=== PATIENT | male | born 1970 | race African-American/Black ===

== ENCOUNTER 2016-04-25 02:05 | Inpatient (IN) | payer OTHER ==
--- NOTE | ~2016-04-25 | PN ---
Unit #: [id number] #: [id number] Patient: TATYANA DICKEY [id number] [facility] [address] [place] [address] [id number] I MR#: [id number] NAME: TATYANA DICKEY ROOM: P204 Age: 45 Sex: M Admission Date: 04/25/2016 : 1970 Attending Physician: Jasbir Nunez M.D. Admitting Physician: Jasbir Nunez M.D. Primary Care Physician: Primary Care Physician Monae BROWN PROGRESS NOTES DATE 05/01/2016 DISCUSSION Mr. Dickey is a 45-year-old male who was seen today and chart was reviewed and case was discussed with the staff. He has been doing fairly well and has been showing improvement in his depression and anxiety. He has been cooperative with treatment recommendations and has been taking medications and tolerating them fairly well with no reported side effects. MENTAL STATUS EXAMINATION Middle-aged male who was casually dressed with fair personal hygiene and appears to be in no acute distress or discomfort. He was awake and alert on interaction with intact orientation. His mood was anxious with congruent affect. He denies any suicidal or homicidal ideations. His insight and judgement remains slightly impaired. TREATMENT PLAN 1. Will continue on his current treatment protocol. Will monitor his response and make further adjustments as needed. 2. Will continue to follow up. Dictated by... Jasbir Nunez M.D. IAA/catherine TD: 05/02/2016 16:59 JOB #: [id number] Unit #: [id number] #: [id number] Patient: TATYANA DICKEY MIGUELVENITA PROGRESS NOTES X Jasbir Nunez MD PROGRESS NOTE
--- NOTE | ~2016-04-25 | HP ---
Unit #: [id number] #: [id number] Patient: TATYANA CHAN [id number] [facility] [address] [place] [address] [id number] I MR#: [id number] NAME: TATYANA CHAN ROOM: P204 Age: 45 Sex: M Admission Date: 04/25/2016 : 1970 Attending Physician: Jasbir Nunez M.D. Admitting Physician: Jasbir Nunez M.D. Primary Care Physician: Primary Care Physician No HISTORY AND PHYSICAL HISTORY OF PRESENT ILLNESS The patient is a 45-year-old male who has been [facility]. He reports he drinks about a fifth of whiskey daily. PAST MEDICAL HISTORY 1. Alcohol abuse. 2. Hypertension. 3. Withdrawal seizures. PAST SURGICAL HISTORY None. ALLERGIES Aspirin. HOME MEDICATIONS None. SOCIAL HISTORY The patient endorses tobacco and alcohol abuse. REVIEW OF SYSTEMS CONSTITUTIONAL: Denies fever or chills. HEENT: Denies sore throat, ear pain, or runny nose. CARDIOVASCULAR: Denies chest pain, irregular heart rhythm, or palpitations. CHEST: Denies shortness of breath or cough. No hemoptysis. GI: Denies nausea, vomiting, diarrhea, or chronic constipation. ENDOCRINE: Denies increased thirst or urination. Denies recent significant weight loss or gain. : Denies dysuria, frequency, or hematuria. SKIN: Denies any rashes. HEMATOLOGIC: Denies history of increased bleeding or bruising. MUSCULOSKELETAL: Denies any hot, swollen joints. No generalized pain. NEUROLOGIC: Denies problems with speech or vision. Denies any loss of bowel or bladder control. PHYSICAL EXAMINATION GENERAL: The patient is awake, in no acute distress. VITAL SIGNS: Temperature 98.7, heart rate 120, respirations 16, blood pressure 108/64. He is 5 feet 6 and weighs 136 pounds. HEENT: Head is atraumatic, normocephalic. Pupils are equal, round, and Unit #: [id number] #: [id number] Patient: TATYANA CHAN reactive. Extraocular movements are intact. No drainage from ears or nose. NECK: Supple. Trachea is midline. HEART: Regular rate and rhythm. LUNGS: Clear. ABDOMEN: Soft, nontender. : Not done. SKIN: Warm, dry. No unusual rash or lesions. EXTREMITIES: No clubbing, cyanosis, or edema. NEUROLOGIC: Cranial nerves II through XII are intact. No focal deficits. Sensory and motor function grossly normal in all extremities. Coordination and gait normal. Deep tendon reflexes intact. IMPRESSION Psychiatric admission. RECOMMENDATIONS PSYCHIATRIC: Per psychiatrist. MEDICAL: I seen no contraindication to patient participating in the facility activities. MEDICAL PROGNOSIS Fair. MEDICAL CONDITION Stable. Dictated by... Shanda Wilson A.P.R.N. for Veronica Limon M.D. GIANNI/coy TD: 04/25/2016 07:58 JOB #: [id number] HISTORY AND PHYSICAL X Shanda Wilson SUPPLIER ENGINEER X HISTORY AND PHYSICAL
--- NOTE | ~2016-04-25 | PN ---
Unit #: [id number] #: [id number] Patient: TATYANA DICKEY [id number] [facility] [address] [place] [address] [id number] I MR#: [id number] NAME: TATYANA DICKEY ROOM: P204 Age: 45 Sex: M Admission Date: 04/25/2016 : 1970 Attending Physician: Jasbir Nunez M.D. Admitting Physician: Jasbir Nunez M.D. Primary Care Physician: Primary Care Physician Monae BROWN PROGRESS NOTES DATE OF SERVICE: 04/29/2016 SUBJECTIVE Mr. Dickey is a 45-year-old male, who was seen today and chart was reviewed and the case was discussed with the staff. He has been anxious and withdrawn, though has not shown any agitation or irritability and has been cooperative with the treatment recommendations as he has been taking the medications and tolerating them fairly well with no reported side effects. MENTAL STATUS EXAMINATION Middle-aged male, who was casually dressed with fair personal hygiene, appears to be in no acute distress or discomfort. He was awake and alert on interaction with intact orientation. His mood was anxious with a congruent affect. His speech was slow and goal directed. He denies any suicidal or homicidal ideations and also denies any auditory or visual hallucinations. His insight and judgment remain slightly impaired. TREATMENT PLAN 1. We will continue him on his current medications and treatment protocol. We will monitor his response to the medications and make further adjustments as needed. 2. We will continue to follow up. Dictated by... Deepti Wood/radha TD: 05/01/2016 10:01 JOB #: [id number] Unit #: [id number] #: [id number] Patient: TATYANA DICKEY PROGRESS NOTES X Jasbir Nunez MD PROGRESS NOTE
--- NOTE | ~2016-04-25 | DS ---
Unit #: [id number] #: [id number] Patient: TATYANA DICKEY [id number] [facility] [address] [place] [address] [id number] I MR#: [id number] NAME: TATYANA DICKEY ROOM: P204 Age: 45 Sex: M Admission Date: 04/25/2016 : 1970 Discharge Date: 05/02/2016 Attending Physician: Jasbir Nunez M.D. Primary Care Physician: Primary Care Physician No DISCHARGE SUMMARY IDENTIFYING DATA Mr. Dickey is a 45-year-old single, male, who is a resident of [place], [place] and is known to us from previous encounter, and was self-referred to the hospital on a voluntary basis. DISCHARGE DIAGNOSES Psychiatric: Alcohol dependence, moderate, in acute withdrawals; alcohol-induced mood disorder. Medical: None. Stressors: Moderate psychosocial stressors. HISTORY OF PRESENT ILLNESS Please see initial psychiatric evaluation for details. PAST PSYCHIATRIC HISTORY Please see initial psychiatric evaluation for details. PAST MEDICAL HISTORY Please see initial psychiatric evaluation for details. HOSPITAL COURSE The patient was admitted to the adult chemical dependency and [facility] at [facility] and was oriented to the hospital environment. Routine p.r.n. medications were initiated, and he was started on the alcohol detox protocol and he was closely monitored. He was taking the medications regularly and was tolerating them fairly well, though was complaining of some persistent depressive symptoms, and as such, Remeron was initiated at 15 mg at bedtime, later it was increased to 30 mg at bedtime and he was seen to be doing much better and was calm and cooperative with treatment recommendations and was taking the medications regularly and was tolerating them fairly well and was able to show a decent and therapeutic response and was willing to continue treatment on an outpatient basis. He is denying any suicidal or homicidal ideations, and was not seen to be danger to self or anyone else, and as such, it was decided that he will be discharged home and will continue treatment on an outpatient basis. DISCHARGE MEDICATIONS Remeron 30 mg at bedtime. DISCHARGE CONDITION Stable. PROGNOSIS Unit #: [id number] #: [id number] Patient: TATYANA DICKEY [facility]. Dictated by... Jasbir Nunez M.D. IAA/modl TD: 05/02/2016 06:53 JOB #: [id number] DISCHARGE SUMMARY X Jasbir Nunez MD DISCHARGE SUMMARY
--- NOTE | ~2016-04-25 | PN ---
Unit #: [id number] #: [id number] Patient: TATYANA DICKEY [id number] [facility] [address] [place] [address] [id number] I MR#: [id number] NAME: TATYANA DICKEY ROOM: P204 Age: 45 Sex: M Admission Date: 04/25/2016 : 1970 Attending Physician: Jasbir Nunez M.D. Admitting Physician: Jasbir Nunez M.D. Primary Care Physician: Primary Care Physician Monae FORD NOTES DATE OF SERVICE: 04/27/2016 SUBJECTIVE Mr. Dickey is a 45-year-old male, who was seen today, chart was reviewed, and case was discussed with the staff. He appears to be doing somewhat better as he has been out of his room and going to therapy groups and has been socialize and interactive. He has been taking medications and tolerating them fairly well with no reported side effects. MENTAL STATUS EXAMINATION Middle-aged male, who was casually dressed with fair personal hygiene, appears to be in no acute distress or discomfort. His mood was anxious with a congruent affect. He denies any suicidal or homicidal ideations. His insight and judgment remain slightly impaired. TREATMENT PLAN 1. We will continue on his current medications and treatment protocol. We will monitor his response to the medications and make further adjustments as needed. 2. We will continue to follow up. Dictated by... Deepti Wood/radha TD: 04/28/2016 06:47 JOB #: [id number] PEAVENITA PROGRESS NOTES X Jasbir Nunez MD PROGRESS NOTE
--- NOTE | ~2016-04-25 | PN ---
Unit #: [id number] #: [id number] Patient: TATYANA DICKEY [id number] [facility] [address] [place] [address] [id number] I MR#: [id number] NAME: TATYANA DICKEY ROOM: P204 Age: 45 Sex: M Admission Date: 04/25/2016 : 1970 Attending Physician: Jasbir Nunez M.D. Admitting Physician: Jasbir Nunez M.D. Primary Care Physician: Primary Care Physician Monae FORD NOTES DATE OF SERVICE: 04/28/2016 SUBJECTIVE Mr. Dickey is a 45-year-old male with mood disorder, who was seen today and chart was reviewed, and case was discussed with the staff. He has been anxious, withdrawn, depressed, and rather seclusive to himself, and has been reporting some persistent depressive symptoms with feelings of hopelessness and suicidal ideation. MENTAL STATUS EXAMINATION Middle-aged male who was casually dressed with fair personal hygiene, appears to be in no acute distress or discomfort. He was awake and alert on interaction with intact orientation. His mood was anxious with a congruent affect. He denies any suicidal or homicidal ideations. His insight and judgment remain slightly impaired. TREATMENT PLAN 1. We will continue him on his current treatment protocol. We will monitor his response to medications and make further adjustments as needed. 2. We will continue to follow up. Dictated by... Deepti Wood/sydneyl TD: 04/29/2016 05:13 JOB #: [id number] KEVIN PROGRESS NOTES X Jasbir Nunez MD PROGRESS NOTE
--- NOTE | ~2016-04-25 | PN ---
Unit #: [id number] #: [id number] Patient: TATYANA DICKEY [id number] [facility] [address] [place] [address] [id number] MR#: [id number] NAME: TATYANA DICKEY ROOM: P204 Age: 45 Sex: M Admission Date: 04/25/2016 : 1970 Attending Physician: Jasbir Nunez M.D. Admitting Physician: Jasbir Nunez M.D. Primary Care Physician: Primary Care Physician Monae FORD NOTES DATE OF SERVICE: 04/26/2016 JOB NOTE: FIRST NAME UNDECIPHERABLE SUBJECTIVE Mr. Dickey is a 45-year-old male, who was seen today, chart was reviewed, and case was discussed with the staff. He has been anxious, withdrawn, and seclusive to himself with blunted affect with minimal interactions and has been reported some persistent anxiety. Meanwhile, he has been taking medications and tolerating them fairly well with no reported side effects. MENTAL STATUS EXAMINATION Middle-aged male, who was casually dressed with fair personal hygiene, appears to be in no acute distress or discomfort. He was awake and alert on interaction with intact orientation. His mood was anxious with a congruent affect. His insight and judgment remain slightly impaired. TREATMENT PLAN 1. We will continue him on his current medications and treatment protocol. We will monitor his response to medications and make further adjustments as needed. 2. We will continue to follow up. Dictated by... Deepti Wood/radha TD: 04/27/2016 01:03 JOB #: [id number] Unit #: [id number] #: [id number] Patient: TATYANA DICKEY MIGUELVENITA PROGRESS NOTES X Jasbir Nunez MD PROGRESS NOTE
--- NOTE | ~2016-04-25 | PN ---
Unit #: [id number] #: [id number] Patient: TATYANA CHAN [id number] [facility] [address] [place] [address] [id number] I MR#: [id number] NAME: TATYANA CHNA ROOM: P204 Age: 45 Sex: M Admission Date: 04/25/2016 : 1970 Attending Physician: Jasbir Nunez M.D. Admitting Physician: Jasbir Nunez M.D. Primary Care Physician: Primary Care Physician Monae FORD NOTES DATE April 30, 2016 DISCUSSION Mr. Mojica is a 45-year-old male, who was seen today and chart was reviewed and the case was discussed with the staff. He has been anxious, withdrawn, and seclusive to himself, and has been reporting persistent depressive symptoms. Meanwhile, he has been taking the medications and tolerating them fairly well with no reported side effects. MENTAL STATUS EXAMINATION Middle-aged male, who was casually dressed with fair personal hygiene and appears to be in no acute distress or discomfort. He was awake and alert on interaction with intact orientation. His mood is anxious and depressed with a congruent affect. His speech is slow and goal-directed. He denies any suicidal or homicidal ideations. His insight and judgment remain slightly impaired. TREATMENT PLAN 1. We will continue him on his current medications and treatment protocol, and will monitor his response to the medications, and make further adjustments as needed. 2. We will continue to followup. Dictated by... Deepti Wood/yuliana TD: 05/01/2016 13:14 JOB #: [id number] Unit #: [id number] #: [id number] Patient: TATYANA CHAN MIGUELVENITA PROGRESS NOTES X Jasbir Nunez MD PROGRESS NOTE
--- NOTE | ~2016-04-25 | PA ---
Unit #: [id number] #: [id number] Patient: TATYANA DICKEY [id number] [facility] [address] [place] [address] [id number] I MR#: [id number] NAME: TATYANA DICKEY ROOM: P204 Age: 45 Sex: M Admission Date: 04/25/2016 : 1970 Date of Assessment: 04/25/2016 Attending Physician: Jasbir Nunez M.D. Admitting Physician: Jasbir Nunez M.D. Primary Care Physician: Primary Care Physician No PSYCHIATRIC ASSESSMENT DATE OF SERVICE 04/25/2016. IDENTIFYING DATA Mr. Dickey is a 45-year-old single male who is a resident of [place], [place] and is known to us from previous encounter and was self-referred to the hospital on voluntary basis. CHIEF COMPLAINT "I have been drinking and drinking for years." HISTORY OF PRESENT ILLNESS A 45-year-old male with long history of alcohol dependence who is known to us from previous multiple encounters and was self-referred to the hospital stating that he has been drinking and he went to [facility] for some help and they referred him to come to [facility] and reports that he is drinking a fifth of whiskey daily with last drink to be in the morning of 04/24/2016 and reports that he has history of delirium tremens with the last episode being in 07/2015 and has history of withdrawal seizures 2 to 3 years ago and denies any other drug abuse and does report increasing depression, anxiety, irritability, feelings of hopelessness and helplessness, but denies any suicidal ideations, intent, or plan. SUBSTANCE ABUSE HISTORY The patient reports long history of alcohol dependence stating that he started drinking at age of 12 and currently has been drinking a fifth of whiskey a day and denies any other drug abuse. PAST PSYCHIATRIC HISTORY The patient has had history of inpatient chemical dependency treatment at [facility], and review of the medical records indicate that currently he is not active in any treatment program, is not seeing a psychiatrist, and not taking any psychotropic medications. PAST MEDICAL HISTORY No acute or chronic medical illnesses. ALLERGIES Aspirin. PERSONAL AND SOCIAL HISTORY A 45-year-old male who reports that he is single, Unit #: [id number] #: [id number] Patient: TATYANA DICKEY unemployed, and has poor social support system. MENTAL STATUS EXAMINATION Middle-aged male who was casually dressed with fair personal hygiene, appears to be in no acute distress or discomfort. He was awake and alert on interaction with intact orientation to time, place, and person. His mood was anxious and depressed with a congruent affect. His speech was slow and goal directed. He denies any suicidal or homicidal ideations, and also denies any auditory or visual hallucinations. His insight and judgment remain significantly impaired. DIAGNOSTIC IMPRESSION Psychiatric: Alcohol dependence, moderate and acute withdrawals; alcohol-induced mood disorder. Medical: None. Stressors: Moderate psychosocial stressors. TREATMENT PLAN 1. The patient has presented with history of mood disorder and substance abuse, and has been decompensating and will need inpatient hospitalization for detoxification, and safety, and stabilization. We will start him on detox protocol. We will closely monitor his response and make further adjustments as needed. 2. Supportive therapy was provided to the patient. 3. Safe, structured, and nourishing environment will be provided. ESTIMATED LENGTH OF STAY 5 to 7 days. ABILITY TO HELP SELF Limited. WILLINGNESS TO HELP SELF The patient appears to be willing to help self. STRENGTHS 1. Communicative. 2. Cooperative. PROBLEMS 1. Chronic chemical dependency. 2. Poor social support system. DISCHARGE CRITERIA This will be contingent upon the patient's ability to go through detox without having any significant withdrawal symptoms and his ability to stay safe to himself, particularly after discharge from the hospital. Dictated by... Deepti Wood/radha TD: 04/25/2016 21:02 JOB #: [id number] Unit #: [id number] #: [id number] Patient: TATYANA DICKEY PSYCHIATRIC ASSESSMENT X Jasbir Nunez MD PSYCHIATRIC ASSESSMENT
[2016-04-25 09:32] LABS: BASOPHIL% 0.4 % (0-2.5); EOSINOPHIL# 0.1 X10e3 (0-0.7); HEMATOCRIT 39.7 % (38.0-50.0); HEMOGLOBIN 13.6 gm/dL (13.0-16.0); LYMPHOCYTE# 1.7 X10e3 (1.0-3.5); LYMPHOCYTE% 27.8 % (17.0-45.0); MEAN CELL VOLUME 100.1 FL (83-96); MEAN CORPUSCULAR HEMOGLOBIN 34.4 PG (28-34); MEAN CORPUSCULAR HGB CONC 34.3 g/dL (30-36); MEAN PLATELET VOLUME 9.3 FL (6.5-11.5); MONOCYTE# 0.8 X10e3 (0-1.0); MONOCYTE% 13.4 % (3.0-12.0); NEUTROPHIL# 3.6 X10e3 (1.5-7.1); NEUTROPHIL% 57.4 % (40-75); PLATELET COUNT 126 X10e3 (140-420); RED BLOOD COUNT 3.97 X10e (3.90-5.60); RED CELL DISTRIBUTION WIDTH 12.7 % (11.0-15.5); WHITE BLOOD COUNT 6.2 X10e3 (4.0-10.5)
[2016-04-25 09:40] LABS: DIFF IND NO
[2016-04-25 09:52] LABS: THYROID STIMULATING HORMONE 2.07 uIU/ml (0.34-5.60)
[2016-04-25 10:02] LABS: ALBUMIN SERUM 3.7 g/dL (3.5-5.0); ALKALINE PHOSPHATASE 73 U/L (32-92); ALT (SGPT) 24 U/L (10-40); AST (SGOT) 98 U/L (10-42); BLOOD UREA NITROGEN 15 mg/dL (9-23); BUN/CREATININE RATIO 13.63; CALCIUM SERUM 9.3 mg/dL (8.4-10.2); CARBON DIOXIDE 29 mmol/L (22-31); CHLORIDE 92 mmol/L (100-111); CREATININE SERUM 1.1 mg/dL (0.6-1.4); GLOM FILT RATE Estimated ABOVE60 mL/min (>60); GLUCOSE FASTING 115 mg/dL (70-110); POTASSIUM 3.9 mmol/L (3.5-5.1); PROTEIN TOTAL SERUM 7.7 g/dL (6.0-8.3); SODIUM 133 mmol/L (135-145)
[2016-04-25 10:03] LABS: FREE THYROXIN (T4) 1.12 ng/dL (0.58-1.64)
[2016-04-27 12:31] LABS: URINE APPEARANCE CLEAR; URINE BILIRUBIN NEG (NEG); URINE BLOOD NEG (NEG); URINE COLOR DK YELLOW; URINE GLUCOSE NEG (NEG); URINE KETONE NEG (NEG); URINE LEUKOCYTE ESTERASE NEG (NEG); URINE NITRATE NEG (NEG); URINE PH 6.5 (5-8); URINE PROTEIN NEG (NEG); URINE SPECIFIC GRAVITY 1.013 (1.003-1.035)
[2016-04-27 12:54] LABS: AMPHETAMINE NEG (NEG); BARBITURATES POS (NEG); BENZODIAZEPINES POS (NEG); COCAINE NEG (NEG); MARIJUANA NEG (NEG); OPIATES NEG (NEG); TRICYCLIC ANTIDEPRESSANTS NEG (NEG); U METHADONE NEG (NEG)
== END 2016-05-02 11:51 | disposition home or self-care (01) | DRG 897 ==
LOC: P2S 02:05
PROVIDERS: Psychiatry & Neurology Psychiatry
PROC: HZ2ZZZZ Detoxification Services for Substance Abuse Treatment (ICD-10-PCS; principal; 2016-04-25)
DX: F10.239 Alcohol dependence with withdrawal, unspecified (principal); F10.24 Alcohol dependence with alcohol-induced mood disorder; I10 Essential (primary) hypertension; F17.210 Nicotine dependence, cigarettes, uncomplicated
CPT/HCPCS: 80053; 80307; 81003; 84439; 84443; 85025; 86592

== ENCOUNTER 2016-05-20 15:08 | Emergency (ER) | payer OTHER ==
--- NOTE | ~2016-05-20 | CT71 ---
[facility] A Service of [facility] RADIOLOGY TEXT RESULTS PATIENT: TATYANA CHAN LOCATION: [place] : [birth year] UNIT #: [id number] AGE: [address]: Edwin Gonzalez MD SEX: M ORDER DR: [id number] [place], [place] [address] [id number] MR#: [id number] Acc #: [id number] NAME: TATYANA CHAN : 1970 SEX: M STUDY DATE/TIME: 05/20/2016 15:46 UNIT: [place] ROOM: STUDY DESCRIPTION: CT Head Wo Contrast Attending Physician: Edwin Gonzalez M.D. Ordering Physician: Edwin Gonzalez M.D. Primary Care Physician: No Primary Care Physician MEDICAL IMAGING REPORT This report is preliminary unless electronic signature is present EXAM Head CT. DATE OF EXAM 05/20/2016 INDICATIONS Chronic headaches for 20 years. Panic attack today. History of alcohol abuse. TECHNIQUE Axial images were obtained from the base to the vertex without contrast. NOTE: This CT exam was performed with one or more of the following radiation dose reduction techniques: automatic exposure control, adjustment of mA and/or kV according to patient size, and iterative reconstruction. COMPARISON No comparison. FINDINGS Mild generalized atrophy is present. Ventricular size and configuration are within normal limits. No acute infarct or hemorrhage is seen. There are no masses. There are no skull fractures. Atherosclerotic calcifications are present in the carotid siphons. IMPRESSION Generalized atrophy. No acute findings. Dictated by... Saúl Sahu Jr., M.D. [facility] A Service of [facility] RADIOLOGY TEXT RESULTS PATIENT: TATYANA CHAN LOCATION: [place] : [birth year] UNIT #: [id number] AGE: [address]: Edwin Gonzalez MD SEX: M ORDER DR: THIS IS AN ELECTRONICALLY VERIFIED REPORT Saúl Sahu Jr., M.D. at 05/21/2016 1:03 PM Giuseppe TD: 05/20/2016 19:47 JOB #: [id number] MEDICAL IMAGING REPORT Page 1 of 1 COPY
== END 2016-05-20 16:15 | disposition home or self-care (01) ==
LOC: CED 15:08
DX: F41.9 Anxiety disorder, unspecified (principal); H92.09 Otalgia, unspecified ear; Z88.8 Allergy status to other drugs, medicaments and biological substances
CPT/HCPCS: 70450; 99284